=== PATIENT | male | born 1970 | race Caucasian/White ===

== ENCOUNTER 2017-01-05 10:08 | Day surgery (SDC) | payer OTHER ==
[2016-12-23 14:56] VITALS: BMI 44.0
[~2017-01-05] VITALS: Ht 170.2 cm; Wt 128.4 kg
--- NOTE | 2017-01-05 06:18 | History and Physical ---
History & Physical Date of Service Jan 05, 2017. History & Physical CC: End stage renal disease HPI: Mr. Roberts states that he was informed that he has worsening renal function and will likely require hemodialysis within the next 6 months to a year. He is advised to have a fistula created before he requires use of it and presents today to discuss that procedure. The patient denies any other complaints at this time including headaches, fevers, chills, dizziness, chest pain, shortness of breath, abdominal pain, nausea, vomiting, diarrhea, constipation, dysuria, hematuria, rest pain, claudication, nonhealing wounds or ulcers or other complaints. HIS ALLERGIES INCLUDE ASPIRIN. His home medications were reconciled on the chart and include the following: Allopurinol, amlodipine, Crestor, Dexilant, furosemide, insulin Glargine, Levoxyl, metoprolol tartrate, NovoLog FlexPen, Toujeo Solostar, Tylenol 500 mg, Viberzi, vitamin D3 and Zantac. PAST MEDICAL HISTORY: Positive for chronic kidney disease stage IV, gout, hypertension, hyperlipidemia, irritable bowel syndrome, morbid obesity, proteinuria, type 2 diabetes mellitus, thyroid disease and gastroesophageal reflux disease. PAST SURGICAL HISTORY: Essentially negative. SOCIAL HISTORY: Positive for a past history of tobacco use. The patient smoked 1 pack of cigarettes per day and quit in May 2016. He denies any alcohol use or illicit drug use. FAMILY HISTORY: Positive for heart disease, hypertension, diabetes, stroke and kidney disease. REVIEW OF SYSTEMS: Positive for chronic fatigue. Negative for fevers or weight loss, abnormal moles or rashes, vision changes or photophobia, ear pain, sinus problems or sore throat, cough, shortness of breath, hemoptysis or wheezing, chest pain, palpitations or syncope. He does admit to some edema of his bilateral lower extremities but states this is chronic and unchanged. He denies any abdominal pain, nausea, vomiting, diarrhea, constipation, hematuria, dysuria, muscle weakness, headaches, dizziness, numbness or seizures. PHYSICAL EXAMINATION: Vital signs today were as follows: Blood pressure 116/ 62 in the right arm, 116/64 in the left, heart rate of 73, and oxygen saturation 97% on room air. The patient is 170 cm tall and weighs 131.2 kilograms. Constitutional: In general, patient is a morbidly obese, unkempt, chronically ill-appearing middle-aged male in no acute distress. He is active, alert and oriented x4 with normal recent and remote memory. Head is normocephalic and atraumatic. Eyes: EOMI. ENMT exam demonstrates no hearing loss, rhinorrhea or pharyngeal erythema. His neck was supple, nontender with midline trachea without masses or crepitus. Lung exam was decreased throughout but clear bilaterally. His cardiovascular exam demonstrates a nondisplaced apical impulse with a regular rate and rhythm. His peripheral pulses were full and equal in all extremities unless otherwise noted; specifically they were normal in his carotid, brachial, radial and femoral pulses. His bilateral lower extremity distal pulses were +2. He has brisk capillary refill and no signs of ischemia. Abdomen is soft and nontender with normoactive bowel sounds in all 4 quadrants without guarding or rebound. There was no flank or CVA tenderness. I am unable to appreciate any pulsatile mass. Musculoskeletal exam demonstrates normal tone and strength for age. Bilateral upper extremities demonstrate no cyanosis, clubbing, varicosities or ulcers. There is trace edema. His bilateral lower extremities demonstrate no cyanosis, clubbing, varicosities or ulcerations. He does have Charcot feet bilaterally and +2 edema. Neurologically, patient has grossly intact cranial nerves and grossly intact sensation. ASSESSMENT: End-stage renal disease, not yet on hemodialysis. Imaging demonstrates usable cephalic veins in his bilateral wrists as well as the upper arms. PLAN: Patient is admitted for a creation of a left wrist av fistula. I have discussed the risks options and benefits of the procedure with the patient. The patient understands the risks options and benefits and agrees to the procedure.
[~2017-01-05 10:08] MED LIST: ACET-1311 PO; ALLO300T2 PO; AMLO-110 PO; CEFAZOLIN 3000 MG/65 ML D5W 65 ML IV SCH; CHOL20009 PO; CRS/10 PO; DEXL60CA4 PO; ELUX1TAB PO; FRS/40 PO; INSU1.2I SQ; LEVO75TA5 PO; METO25TA56 PO; NSS 1000ML IV SCH; NVLG SQ; PREG1CAP36 PO; SODIUM CHLORIDE 0.9% 1000ML 1,000 ML IV SCH; VTMD PO; ZNTT/150 PO
[2017-01-05] MEDS ORDERED: KETAMINE HCL INJ 50 MG/ML 10 ML VIAL ONE (10:41)
[2017-01-05] MEDS ORDERED: ONDANSETRON INJ 2 MG/ML 2 ML VIAL ONE (10:41)
[2017-01-05] MEDS ORDERED: PROPOFOL IV EMULSION 10 MG/ML 20 ML VIAL IV ONE ×3 (10:41→13:06)
[2017-01-05] MEDS ORDERED: SODIUM CHLORIDE 0.9% INJ 10 ML VIAL ONE (10:41)
[2017-01-05] MEDS ORDERED: FENTANYL CITRATE INJ 50 MCG/1 ML 2 ML VIAL ONE (10:41)
[2017-01-05] MEDS ORDERED: LIDOCAINE HCL 2% 2 ML VIAL (20MG/ML) ONE (10:41)
[2017-01-05] MEDS ORDERED: MIDAZOLAM HCL 1 MG/ML 2ML VIAL ONE (10:41)
[2017-01-05 10:56] VITALS: BP 141/73; PULSE 69; TEMP 36.9; O2SAT 97; Ht 170.2 cm; Wt 128.4 kg
[2017-01-05] MEDS ORDERED: NURSING VERBAL MED ORDER ONE (11:00)
[2017-01-05] MEDS ORDERED: NovoLIN-R INSULIN PER UNIT CHARGE ONE (11:00)
[2017-01-05] MEDS ORDERED: HEPARIN SOD (PORCINE) 1000 UNIT/ML 10 ML VIAL ONE (11:06)
[2017-01-05] MEDS ORDERED: BUPIVACAINE/EPINEPHRINE 0.5% MPF 1:200,000 30 ML VIAL ONE (11:06)
[2017-01-05] MEDS ORDERED: LIDOCAINE HCL 1% 20 ML VIAL ONE (11:07)
[2017-01-05 11:12] LABS: PROTHROMBIN TIME (PATIENT) 10.6 SECONDS (9.0-12.0)
--- NOTE | 2017-01-05 11:18 | History & Physical Bridge Note ---
H&P Re-Evaluation Bridge Note: I have examined the patient, reviewed the History & Physical and in the interval since the performance of the History & Physical I have noted the following changes of clinical significance: No changes noted
[2017-01-05] MEDS ORDERED: GELATIN SPONGE 12-7MM ONE (11:24)
[2017-01-05] MEDS ORDERED: THROMBIN 5000 UNITS KIT ONE (11:24)
[2017-01-05] MEDS ORDERED: SODIUM CHLORIDE 0.9% 1000ML 1,000 ML IV PRN (11:34)
[2017-01-05 11:40] LABS: BUN/CREATININE RATIO 23.6 (10-20); CALCIUM 8.7 mg/dl (8.5-10.1); CREATININE 3.9 mg/dl (0.60-1.40); POTASSIUM 4.5 mmol/L (3.5-5.1)
[2017-01-05] MEDS ORDERED: ONDANSETRON INJ 2 MG/ML 2 ML VIAL IV PRN (11:45)
[2017-01-05] MEDS ORDERED: FENTANYL CITRATE INJ 50 MCG/1 ML 2 ML VIAL IV PRN (11:45)
--- NOTE | 2017-01-05 13:30 | [facility] Post Operative Brief Note ---
Immediate Operative Summary Operative Date Jan 05, 2017. Pre-Operative Diagnosis End Stage Renal Disease Post-Operative Diagnosis Same as preoperative Procedure(s) Performed Left Wrist Arteriovenous Fistula Surgeon [employer] Purchasing Agent Surgeon(s) Yoko Huntley PA-C Estimated Blood Loss 30ML Findings good doppler bruit Specimens None per surgeon Anesthesia MAC Complication(s) None Disposition Recovery Room / PACU
[2017-01-05] MEDS ORDERED: OXYC-57 PO (13:31)
--- NOTE | 2017-01-05 13:32 | Discharge Instructions ---
Discharge Instructions Visit Reason for Visit: End Stage Renal Disease Discharge Discharge Diagnosis / Problem: End stage renal disease Discharge Goals Goal(s): Therapeutic intervention Activity Recommendations Activity Limitations: per Instructions/Follow-up section Anesthesia . Post Anesthesia Instructions: If you have had General Anesthesia or IV Sedation: * Do not drive today. * Resume driving when surgeon permits. * Do not make important decisions or sign legal documents today. * Call surgeon for: 1. Temperature elevations greater than 101 degrees F. 2. Uncontrollable pain. 3. Excessive bleeding. 4. Persistent nausea and vomiting. 5. Medication intolerance (nausea, vomiting or rash). * For nausea and vomiting use only clear liquids such as: tea, soda, bouillon until nausea subsides, then gradually increase diet as tolerated. * If you have any concerns or questions, call your surgeon's office. If physician is unavailable and it is an emergency, call 911 or go to the nearest emergency room. . Instructions / Follow-Up Instructions / Follow-Up Call [phone] to schedule a follow up appointment if one not already scheduled. ACTIVITY RECOMMENDATIONS: See Above SPECIAL CARE INSTRUCTIONS: Call your doctor if: * Temperature above 101 degrees * Pain not relieved by pain medicine ordered * There is increased drainage or redness from any incision * You have any unanswered questions or concerns. Diet Recommendations Recommended Home Diet: resume previous diet Procedures Procedures Performed: Left Wrist Arteriovenous Fistula Pending Studies Studies pending at discharge: no Medical Emergencies . Who to Call and When: Medical Emergencies: If at any time you feel your situation is an emergency, please call 911 immediately. . Non-Emergent Contact Non-Emergency issues call your: Surgeon . . "Provider Documentation" section prepared by Cade Acosta.
--- NOTE | 2017-01-05 14:03 | Anesthesiology Progress Note ---
Anesthesia Post Op Note Date & Time Jan 05, 2017 at 14:03 Vital Signs Pain Intensity: 0 Vital Signs Past 12 Hours Date Time Temp Pulse Resp B/P Pulse Ox O2 Delivery O2 Flow Rate FiO2 01/05/17 13:45 68 15 148/79 100 Mask 10 01/05/17 13:37 36.3 69 16 142/87 100 Mask 10 01/05/17 10:56 36.9 69 20 141/73 97 Room Air Notes Mental Status: alert / awake / arousable, participated in evaluation Pt Amnestic to Procedure: Yes Nausea / Vomiting: adequately controlled Pain: adequately controlled Airway Patency, RR, SpO2: stable & adequate BP & HR: stable & adequate Hydration State: stable & adequate Anesthetic Complications: no major complications apparent Pt doing well.
--- NOTE | 2017-01-05 14:05 | Progress Note ---
Progress Note Date of Service Jan 05, 2017. Progress Note I assisted Dr Acosta with Benson Roberts's Left Wrist Arteriovenous Fistula on 01/05, d/t lack of resident availability.
--- NOTE | 2017-01-05 14:09 | OPERATIVE REPORT ---
DATE OF OPERATION: 01/05/2017 PREOPERATIVE DIAGNOSIS: Endstage renal disease. POSTOPERATIVE DIAGNOSIS: Same. PROCEDURE: Left wrist AV fistula. SURGEON: Dr. Acosta. MANAGER ASSISTED LIVING: Yoko Huntley PA-C. ANESTHETIC: MAC. PROCEDURE INDICATIONS: The patient is a 46-year-old gentleman in end-stage renal disease in need of permanent access. Left wrist AV fistula was recommended. He understood the risks, options and benefits and agreed to go ahead with this procedure. OPERATION AND FINDINGS: The patient was taken to the operating room and placed in supine position. After the left arm was prepped and draped in a sterile manner, local anesthetic was administered. A longitudinal incision was made midway between the cephalic vein and the radial artery. The cephalic vein was identified. It was on the small side. It was dissected free, it was ligated distally and transected. It was gently dilated and dilated up probably to approximately 3 to 3.5 mm in size. Radial artery was seen. It was fairly small. This was then isolated and clamped proximally and distally. Longitudinal arteriotomy was then made. An end-to-side anastomosis was then accomplished with using a 7-0 Prolene suture. Once the clamps were removed I did not like the flow through the fistula. The flow was extremely sluggish. I reclamped, took down the anastomosis and redid the anastomosis. Again, there was poor flow. Stephen catheter was passed up the vein and this went up easily. It was patent. We then did the same with the artery. There was no clot seen, however, the artery was dilated. It did dilate up after the Stephen was passed. At that point being that the 2 anastomoses did not get good flow we decided to go up a little higher on the artery. The fistula was ligated just beyond its first anastomosis. It was then transected. The artery was clamped proximally and distally. Longitudinal arteriotomy was then made higher up and end-to-side anastomosis was accomplished. After completing the closure a #3 Stephen was passed up the radial artery and cephalic vein again. No clot was removed. The anastomosis was then securely tied. Clamps were removed. Excellent flow was seen at that time. Good Doppler flow was heard up to almost the antecubital fossa through the cephalic vein. At that point, adequate hemostasis was noted. The wound was then closed in the usual fashion using running 3-0 Vicryl suture for subcutaneous layer and a running 4-0 subcuticular suture for the skin edges. Dermabond was used for dressing. The patient left the operating room in satisfactory condition and tolerated the procedure well. Yoko Huntley assisted due to lack of resident availability. I attest to the content of the Intraoperative Record and any orders documented therein. Any exceptio ns are noted below.
[2017-01-05 14:25] VITALS: BP 115/71; PULSE 67; TEMP 36.8; O2SAT 96
[2017-01-05 14:50] VITALS: BP 122/71; PULSE 66; TEMP 36.9; O2SAT 97
== END 2017-01-05 15:05 | disposition home or self-care (01) ==
LOC: C.ACU 10:08
PROVIDERS: ATTEND Surgery Vascular Surgery
DX: I12.0 Hypertensive chronic kidney disease with stage 5 chronic kidney disease or end stage renal disease (principal); N18.6 End stage renal disease; E66.01 Morbid (severe) obesity due to excess calories; E78.5 Hyperlipidemia, unspecified; Z87.891 Personal history of nicotine dependence; E11.9 Type 2 diabetes mellitus without complications; K58.9 Irritable bowel syndrome, unspecified

== ENCOUNTER 2017-06-17 11:37 | Day surgery (SDC) | payer OTHER ==
[2017-06-16 15:04] VITALS: BMI 46.0
[~2017-06-17] VITALS: Ht 170.2 cm; Wt 135.0 kg
--- NOTE | 2017-06-17 06:09 | History and Physical ---
History & Physical Date of Service Jun 17, 2017. History & Physical CC: End stage renal disease, malfunctioning fistula HPI: Mr. Roberts had a fistula placed in the past. He now needs dialysis and it could not be cannulated. He is now admitted for a fistulogram with possible intervention and insertion of permcath. The patient denies any other complaints at this time including headaches, fevers, chills, dizziness, chest pain, shortness of breath, abdominal pain, nausea, vomiting, diarrhea, constipation, dysuria, hematuria, rest pain, claudication, nonhealing wounds or ulcers or other complaints. HIS ALLERGIES INCLUDE ASPIRIN. His home medications were reconciled on the chart and include the following: Allopurinol, amlodipine, Crestor, Dexilant, furosemide, insulin Glargine, Levoxyl, metoprolol tartrate, NovoLog FlexPen, Toujeo Solostar, Tylenol 500 mg, Viberzi, vitamin D3 and Zantac. PAST MEDICAL HISTORY: Positive for chronic kidney disease stage IV, gout, hypertension, hyperlipidemia, irritable bowel syndrome, morbid obesity, proteinuria, type 2 diabetes mellitus, thyroid disease and gastroesophageal reflux disease. PAST SURGICAL HISTORY: Essentially negative. SOCIAL HISTORY: Positive for a past history of tobacco use. The patient smoked 1 pack of cigarettes per day and quit in May 2016. He denies any alcohol use or illicit drug use. FAMILY HISTORY: Positive for heart disease, hypertension, diabetes, stroke and kidney disease. REVIEW OF SYSTEMS: Positive for chronic fatigue. Negative for fevers or weight loss, abnormal moles or rashes, vision changes or photophobia, ear pain, sinus problems or sore throat, cough, shortness of breath, hemoptysis or wheezing, chest pain, palpitations or syncope. He does admit to some edema of his bilateral lower extremities but states this is chronic and unchanged. He denies any abdominal pain, nausea, vomiting, diarrhea, constipation, hematuria, dysuria, muscle weakness, headaches, dizziness, numbness or seizures. PHYSICAL EXAMINATION: Vital signs today were as follows: Blood pressure 116/ 62 in the right arm, 116/64 in the left, heart rate of 73, and oxygen saturation 97% on room air. The patient is 170 cm tall and weighs 131.2 kilograms. Constitutional: In general, patient is a morbidly obese, unkempt, chronically ill-appearing middle-aged male in no acute distress. He is active, alert and oriented x4 with normal recent and remote memory. Head is normocephalic and atraumatic. Eyes: EOMI. ENMT exam demonstrates no hearing loss, rhinorrhea or pharyngeal erythema. His neck was supple, nontender with midline trachea without masses or crepitus. Lung exam was decreased throughout but clear bilaterally. His cardiovascular exam demonstrates a nondisplaced apical impulse with a regular rate and rhythm. His peripheral pulses were full and equal in all extremities unless otherwise noted; specifically they were normal in his carotid, brachial, radial and femoral pulses. His bilateral lower extremity distal pulses were +2. He has brisk capillary refill and no signs of ischemia. Abdomen is soft and nontender with normoactive bowel sounds in all 4 quadrants without guarding or rebound. There was no flank or CVA tenderness. I am unable to appreciate any pulsatile mass. Musculoskeletal exam demonstrates normal tone and strength for age. Bilateral upper extremities demonstrate no cyanosis, clubbing, varicosities or ulcers. There is a thrill in the fistula. There is trace edema. His bilateral lower extremities demonstrate no cyanosis, clubbing, varicosities or ulcerations. He does have Charcot feet bilaterally and +2 edema. Neurologically, patient has grossly intact cranial nerves and grossly intact sensation. ASSESSMENT: End-stage renal disease, Non maturing fistula PLAN: Patient is admitted for a fistulogram with possible intervention and an insertion of a permcath. I have discussed the risks options and benefits of the procedure with the patient. The patient understands the risks options and benefits and agrees to the procedure.
[~2017-06-17 11:37] MED LIST changes: +CEFAZOLIN 1000MG/55 ML D5W IV SCH; -CEFAZOLIN 3000 MG/65 ML D5W 65 ML IV SCH; +CEFAZOLIN 3000 MG/65 ML D5W IV SCH; +D5W AND 1/4NSS 1,000 ML IV SCH; -NSS 1000ML IV SCH; -SODIUM CHLORIDE 0.9% 1000ML 1,000 ML IV SCH
[2017-06-17 12:21] VITALS: BP 114/67; PULSE 67; TEMP 36.8; O2SAT 97; Ht 170.2 cm; Wt 135.0 kg
[2017-06-17 13:03] VITALS: BP 114/67; PULSE 67; TEMP 36.8; O2SAT 97
[2017-06-17] MEDS ORDERED: HEPARIN SOD (PORCINE) 5000 UNIT/ML 1 ML VIAL ONE (16:14)
--- NOTE | 2017-06-17 17:36 | Procedure Note ---
Pre-Mod Sedation Assessment General Date of Moderate Sedation: Jun 17, 2017. Vital Signs: Vital Signs Past 12 Hours Date Time Temp Pulse Resp B/P (MAP) Pulse Ox O2 Delivery O2 Flow Rate FiO2 06/17/17 13:03 36.8 67 20 114/67 97 Room Air 06/17/17 12:21 36.8 67 20 114/67 (83) 97 Room Air Pre-Sedation Airway Assessment Oral Cavity: WNL Short Thick Neck: No Hx of Sleep Apnea: No Smoking Status: Former Smoker Mallampati Classification: Class I ASA Classification: Class IV Notes The planned sedation has been discussed with the patient and consent obtained. I have identified the patient, determined the appropriateness of sedation and have assessed the patient immediately prior to the procedure. All medicine(s) and interventions are by my order.
[2017-06-17] MEDS ORDERED: MIDAZOLAM HCL 1 MG/ML 2ML VIAL ONE (17:42)
[2017-06-17] MEDS ORDERED: FENTANYL CITRATE INJ 50 MCG/1 ML 2 ML VIAL ONE (17:42)
[2017-06-17] MEDS ORDERED: MIDAZOLAM HCL 1 MG/ML 2ML VIAL IV ONE (18:38)
--- NOTE | 2017-06-17 18:56 | [facility] Post Operative Brief Note ---
Immediate Operative Summary Operative Date Jun 17, 2017. Pre-Operative Diagnosis End-stage renal disease, Non maturing fistula Post-Operative Diagnosis Same Procedure(s) Performed Fistulogram, Embolization of branch of fistula, insertion right int jug vein permcath, usn localization int jugular vein, fluoro for positioning, conscious sedation [id number] Surgeon Karla Fabrication Inspector Surgeon(s) King Willett, Fellow Estimated Blood Loss 10 Findings tip in distal SVC Specimens None Anesthesia Local with sedation Complication(s) None Disposition
--- NOTE | 2017-06-17 18:56 | Procedure Note ---
Post-Moderate Sedation Plan General Date of Moderate Sedation Jun 17, 2017. Vital Signs: Vital Signs Past 12 Hours Date Time Temp Pulse Resp B/P (MAP) Pulse Ox O2 Delivery O2 Flow Rate FiO2 06/17/17 13:03 36.8 67 20 114/67 97 Room Air 06/17/17 12:21 36.8 67 20 114/67 (83) 97 Room Air Review - Discharge Plan Post Moderate Sedation Plan: On clinical assessment, the patient appears to have tolerated the conscious sedation without complications. Patient is recovering as anticipated. Patient will continue to be monitored by nursing and may be discharged when conscious sedation discharge criteria are met.
[2017-06-17] MEDS ORDERED: ACETAMINOPHEN 325 MG TAB PO PRN (19:00)
--- NOTE | 2017-06-17 19:01 | [facility] Operative Report ---
Operative Report Operative Date Jun 17, 2017. Pre-Operative Diagnosis End-stage renal disease, Non maturing fistula Post-Operative Diagnosis Same Procedure(s) Performed Fistulogram, Embolization of branch of fistula, insertion right int jug vein permcath, usn localization int jugular vein, fluoro for positioning, conscious sedation [phone] Surgeon Karla Applier Surgeon(s) King Willett, Fellow Estimated Blood Loss 10 Findings Tip of catheter in SVC 35cc contrast 3.8min fluoro time 18mGy radiation Specimens None Anesthesia Local with sedation Complication(s) None Disposition Recovery Room / PACU Indications Mr. Roberts had a fistula placed in the past. He now needs dialysis and it could not be cannulated. He is now admitted for a fistulogram with possible intervention and insertion of permcath. Description of Procedure Patient was taken to the angio suite and placed in the supine position. The left arm was prepped and draped in a sterile fashion. A micropuncture needle was used to access the fistula after local anesthetic was applied. A fistulogram was completed. An angled Glidewire was advanced and to side branches of the AV fistula were selected. A confirmatory fistulogram was completed. The sheath was exchanged for a 5 Barb[place] sheath and a in angled glide catheter was advanced proximal to the side branch of the AV fistula. three 6 mm coils were used to embolize the tumor side branches. A follow-up fistulogram was completed showing limited flow in the side branches with a patent AV fistula. The wire catheter and sheath was then removed. At the end of this procedure the AV fistula had a strong thrill. Attention was then turned to the right neck for placement of a permacath. The right side of the neck and chest wall were prepped and draped in a sterile manner. Local anesthesia was then administered to the appropriate areas of the neck and chest wall. Ultrasound was then used to locate the right internal jugular vein. The vein compressed easily, had no filing defects, and was patent. The vein was then punctured under direct ultrasound imaging. A guidewire was then passed centrally under fluoroscopic imaging. A stab wound was then made in the anterior chest wall and a 19 cm permcath was passed from the stab wound on the chest wall to the puncture site on the neck. The puncture site was then dilated till the 14Fr peel away sheath was inserted. The permcath was then inserted through the sheath to a central position in the distal superior vena cava. The peel away sheath was then removed. The catheter was then sutured in place using nylon sutures. The puncture was then closed using a 4-0 Vicryl subcuticular suture. Dermabond was used for a dressing on the puncture site. Both ports aspirated and flushed easily and were then packed with heparin. A sterile dressing was applied to the catheter. The patient left the angio suite in good condition and tolerated the procedure well. I, Dr. Acosta was present and scrubbed for the entire procedure. I attest to the content of the Intraoperative Record and any orders documented therein. Any exceptions are noted below.
[2017-06-17 19:08] VITALS: BP 153/78; PULSE 85; TEMP 36.4; O2SAT 100
[2017-06-17] MEDS ORDERED: LIDOCAINE HCL 1% 20 ML VIAL INJ ONE (19:09)
[2017-06-17] MEDS ORDERED: HEPARIN SOD (PORCINE) 5000 UNIT/ML 1 ML VIAL IV ONE (19:09)
[2017-06-17] MEDS ORDERED: VISIPAQUE IV ONE (19:11)
--- NOTE | 2017-06-17 19:11 | Discharge Instructions ---
Discharge Instructions Date of Service Jun 17, 2017. Visit Reason for Visit: Malfunctioning Fistula Discharge Discharge Diagnosis / Problem: Malfunctioning fistula Discharge Goals Goal(s): Therapeutic intervention Activity Recommendations Activity Limitations: per Instructions/Follow-up section Anesthesia . Post Anesthesia Instructions: If you have had General Anesthesia or IV Sedation: * Do not drive today. * Resume driving when surgeon permits. * Do not make important decisions or sign legal documents today. * Call surgeon for: 1. Temperature elevations greater than 101 degrees F. 2. Uncontrollable pain. 3. Excessive bleeding. 4. Persistent nausea and vomiting. 5. Medication intolerance (nausea, vomiting or rash). * For nausea and vomiting use only clear liquids such as: tea, soda, bouillon until nausea subsides, then gradually increase diet as tolerated. * If you have any concerns or questions, call your surgeon's office. If physician is unavailable and it is an emergency, call 911 or go to the nearest emergency room. . Instructions / Follow-Up Instructions / Follow-Up Call [phone] to schedule a follow up appointment if one not already scheduled. May use Remotiumcath for dialysis SPECIAL CARE INSTRUCTIONS: Medications: * Continue to take your medications as directed. If you have been given a prescription for Plavix, please fill it immediately and take as directed. Incision Care: * Your puncture site may have some bruising and minor swelling for about one week. * You will have a small dressing covering your puncture site. You may remove the dressing after 24 hours and shower. You may let the warm soapy water run over it, but be sure to dry the puncture site well and keep it dry. * DO NOT IMMERSE THE INCISION IN A TUB/POOL/etc. UNTIL HEALED. * Puncture sites should be kept covered with a band-aid until it begins to heal. Restrictions: * Depending on whether you leg or arm was punctured to access the arteries, you will be required to lay flat, hold your arm still, or both, for about 4 hours after the procedure to prevent bleeding. * Limit your activity for the first 48 hours. You may walk and go up and down steps. Avoid excessive bending or movement at the puncture site. Possible Complications: * Excessive Swelling - after blood flow is improved you may notice increased swelling in the lower legs. This is a normal response. This usually depends on the amount of blockages in the leg, how long they have been there prior to your procedure and how much blood flow was restored. Elevating your legs will help to improve this. Please notify our office ([phone] ) if the swelling does not go away after lying in bed overnight. * Infection/Drainage/Bleeding - Drainage or bleeding from the puncture site should be minimal. If you have excessive bleeding or drainage, call our office ([phone]) right away. * Pain - You may experience some mild pain or soreness at your puncture site. If your pain does not improve, please contact our office ([phone]). Call your doctor and seek emergent treatment if you develop: * Temperature above 101 degrees * Any fever or chills * Any redness or purulent drainage from the puncture site * Any new dusky/blue colored toes or feet with coolness or sharp or aching pain. SKIN IRRITATION: * You may experience some redness and/or swelling in the area where radiation was administered. If any skin irritation occurs, please contact your family physician. FOLLOW UP VISIT: Keep any scheduled doctor appointments. Diet Recommendations Recommended Home Diet: resume previous diet Procedures Procedures Performed: Fistulogram, Embolization of branch of fistula, insertion right int jug vein permcath, usn localization int jugular vein, fluoro for positioning, conscious sedation [id number] Pending Studies Studies pending at discharge: no Medical Emergencies . Who to Call and When: Medical Emergencies: If at any time you feel your situation is an emergency, please call 911 immediately. . Non-Emergent Contact Non-Emergency issues call your: Surgeon . . "Provider Documentation" section prepared by Cade Acosta. .
[2017-06-17] MEDS ORDERED: ACETAMINOPHEN 325 MG TAB ONE (19:19)
[2017-06-17 19:25] VITALS: BP 162/87; PULSE 69; TEMP 36.2; O2SAT 98
[2017-06-17 19:55] VITALS: BP 170/83; PULSE 70; TEMP 36.6; O2SAT 97
== END 2017-06-17 19:58 | disposition home or self-care (01) ==
LOC: C.ACU 11:37
PROVIDERS: ATTEND Surgery Vascular Surgery
DX: T82.590A Other mechanical complication of surgically created arteriovenous fistula, initial encounter (principal); Y83.2 Surgical operation with anastomosis, bypass or graft as the cause of abnormal reaction of the patient, or of later complication, without mention of misadventure at the time of the procedure; N18.6 End stage renal disease; M10.9 Gout, unspecified; I12.0 Hypertensive chronic kidney disease with stage 5 chronic kidney disease or end stage renal disease; E78.5 Hyperlipidemia, unspecified; K58.9 Irritable bowel syndrome, unspecified; E66.01 Morbid (severe) obesity due to excess calories; E11.9 Type 2 diabetes mellitus without complications; K21.9 Gastro-esophageal reflux disease without esophagitis; Z87.891 Personal history of nicotine dependence; Z82.49 Family history of ischemic heart disease and other diseases of the circulatory system; Z83.3 Family history of diabetes mellitus; Z84.1 Family history of disorders of kidney and ureter; Z82.3 Family history of stroke